=== PATIENT | female | born 1960 | race Caucasian/White ===

== ENCOUNTER 2024-03-06 04:27 | Inpatient (IN) | payer OTHER, SELFPAY ==
[2024-03-05 23:23] VITALS: BMI 31.2
[2024-03-05 23:33] VITALS: BP 153/93
[2024-03-05 23:49] VITALS: BP 174/96
[2024-03-06] VITALS (10 sets, daily range): BP systolic 105–182; BP diastolic 76–123; BMI 29.2
[2024-03-06] MEDS: ZOFRAN 4 MG IV (00:13)
[2024-03-06] MEDS: NSS 1000 IV (00:13)
--- NOTE | 2024-03-06 00:15 | ED.GENMED ---
History of Present Illness
General
Chief Complaint: Abdominal Symptoms
Time Seen by Provider: 03/05/24 23:44
History of Present Illness
History of Present Illness:
63-year-old female with history of Kang syndrome with hypertension and diabetes presenting for nausea, vomiting, chills and shakes. Patient reports symptoms started at 7 PM. Reports similar symptoms in the past, which time she was seen at
outside hospital and told that she had ketoacidosis. She does not generalized discomfort with her abdomen, however no significant pain. Her primary complaint is chills and sweating. She is not on any steroids for Kang syndrome, notes history
of adrenal gland removal. Denies any recent fever or sick contacts. Denies cough, chest pain, difficulty breathing. Also reports surgical history of colon resection for colon cancer
Phy Exam
Physical Exam
Physical Exam:
General: Restless, diaphoretic
HEENT: protecting airway
Neck: appears supple
CV: Normal heart rate, regular rhythm
Resp: No accessory muscle use, no increased work of breathing
Abd: Soft and non-distended, no tenderness to palpation
Extremities: No deformities, no swelling
Neuro: alert, no focal neurologic deficit
: deferred
Rectal: deferred
Psych: Normal affect
Skin: Intact
Course
Orders/Labs/Results
Orders:
Orders
03/05/24 23:57
Complete Blood Count/With Diff Urgent
03/06/24 00:05
0.9% Sodium Chloride 1000 ml [Nss] 1,000 ml IV BOLUS
Ondansetron Injectable [Zofran] 4 mg IV NOW STA
03/06/24 00:16
Venous Blood Gas Urgent
%Oxygen/Room Air: 21
03/06/24 00:49
B-Hydroxybutyrate Urgent
Comprehensive Metabolic Panel Urgent
Lipase Urgent
03/06/24 01:23
Lorazepam [Ativan] 1 mg IV NOW STA
Morphine Sulfate 4 mg IV NOW STA
03/06/24 01:32
CT Abd/pel Without Iv Or Oral Urgent
Comment:
Reason For Exam: abdominal pain, vomiting
03/06/24 01:59
COVID-19 Antigen Urgent
Source: Nasal Swab
Influenza A+B Rapid Molecular Urgent
KARAN Source: Nasal Swab
Specimen Description:
03/06/24 02:57
Urinalysis Reflex To Culture Urgent
Abnormal Lab Results
03/06/24 03/06/24
00:16 00:49
WBC 12.2 H 10^3/uL
(4.8-10.8)
RBC 5.43 H 10^6/uL
(4.20-5.40)
Hgb 16.4 H g/dL
(12.0-16.0)
Abs Immat Gran (auto) 0.2 H 10^3/uL
(0-0.05)
Absolute Neuts (auto) 9.8 H 10^3/uL
(1.4-6.5)
Immature Gran % 1.6 H %
(0-0.5)
Neutrophils % 80.3 H %
(42.2-75.2)
Lymphocytes % 12.3 L %
(20.5-51.1)
VBG pH 7.45 H
(7.32-7.43)
VBG pCO2 23 L mmHg
(35-48)
VBG pO2 86 H mmHg
(30-50)
VBG HCO3 16.0 L mmol/L
(22-27)
Sodium 132 L mmol/L
(135-145)
Chloride 97 L mmol/L
(98-107)
Carbon Dioxide 15 L mmol/L
(22-30)
BUN 29 H mg/dl
(7-17)
Creatinine 1.9 H mg/dL
(0.6-1.0)
Glucose 279 H mg/dl
(70-99)
B-Hydroxybutyrate 2.00 H mmol/L
(0.02-0.27)
03/06/24 00:16
03/06/24 00:49
Vital Signs
Initial and Last Documented VS:
Initial Vital Signs
Temp Pulse Resp BP Pulse Ox
97.2 F 104 20 153/93 99
03/05/24 23:33 03/05/24 23:33 03/05/24 23:33 03/05/24 23:33 03/05/24 23:33
Last Documented Vital Signs
Temp Pulse Resp BP Pulse Ox
97.2 F 109 24 105/91 99
03/05/24 23:33 03/06/24 02:00 03/06/24 01:30 03/06/24 02:00 03/06/24 00:30
MDM/Problems Addressed
MDM/Problems Addressed:
63-year-old female with history of Kang syndrome with diabetes and hypertension presenting for chills, sweats, nausea and vomiting. Vital signs and arrival significant for mild tachycardia and hypertension.
On exam, patient is restless, diaphoretic. Notes similar symptoms in the past from ketoacidosis. Plan for laboratory analysis including VBG. Will start patient on IV fluids. No focal tenderness to abdomen lower suspicion for serious
intra-abdominal process or infection. Will continue to monitor. Will also send viral swabs.
01:20 -the patient is still uncomfortable, will administer Ativan and morphine. Will proceed with imaging of the abdomen. Patient has an anion gap without acidosis, slight hyperglycemia
02:50 -CT without acute pathology. Patient reports improvement of symptoms, however symptoms are now returning. Patient remains slightly tachycardic with concern for underlying dehydration and ketosis. Recommending admission for acute dehydration
and ketosis. Patient agreeable to plan
*Critical Care Note
Total Time (30-74mins, 75-104mins- exclusive of procedures): Not Applicable
ED Attending Note
-
Portions of this chart may have been created with voice recognition software.� Occasional wrong word or��sound alike� substitutions may have occurred due to the inherent limitations of voice recognition software.
Discharge Plan
Interventions
Interventions:
*Risk Screen - Suicide Last Done: 03/06/24 00:11
*General Assessment Last Done: 03/06/24 00:10
*Neglect/Abuse Screening Last Done: 03/06/24 00:10
ED- Fall Risk Assessment Last Done: 03/06/24 00:17
*ED COVID-19 Vaccine History Last Done: 03/06/24 00:10
PD-Nyscde-Fhsjnlmrhr Assessment Last Done: 03/06/24 00:17
Discharge Date and Time
Print Language: SOUTH AFRICAN
[2024-03-06 00:23] LABS: Venous Blood Gas B.E. -5.5 mmol/L (-4 to +4); Venous Blood Gas O2 Sat % 98.1 %; Venous Blood Gas pCO2 23 mmHg (35-48); Venous Blood Gas pH 7.45 (7.32-7.43); Venous Blood Gas pO2 86 mmHg (30-50)
[2024-03-06 00:33] LABS: % Basophils 0.4 % (0-2); % Eosinophils 0.2 % (0-6); % Immature Granulocytes 1.6 % (0-0.5); % Lymphocytes 12.3 % (20.5-51.1); % Monocytes 5.2 % (1.7-9.3); % Neutrophils 80.3 % (42.2-75.2); Absolute Basophils 0.1 10^3/uL (0-0.2); Absolute Immature Granulocytes 0.2 10^3/uL (0-0.05); Absolute Lymphocytes 1.5 10^3/uL (1.2-3.4); Absolute Monocytes 0.6 10^3/uL (0.1-0.6); Absolute Neutrophils 9.8 10^3/uL (1.4-6.5); Hematocrit 46.6 % (37.0-47.0); Hemoglobin 16.4 g/dL (12.0-16.0); Mean Corp Hgb Conc. 35.2 g/dL (33.0-37.0); Mean Corpuscular Hgb 30.2 pg (27.0-31.0); Mean Corpuscular Volume 85.8 fL (81.0-99.0); Mean Platelet Volume 9.8 fL (7.4-10.4); Nucleated Red Blood Cells % 0 %; Platelet Count 296 10^3/uL (130-400); Red Blood Cell Count 5.43 10^6/uL (4.20-5.40); Red Cell Dist. Width 13.9 % (11.5-14.5); White Blood Cell Count 12.2 10^3/uL (4.8-10.8)
[2024-03-06 01:14] LABS: ALT (SGPT) 16 U/L (0-35); AST (SGOT) 18 U/L (14-36); Albumin 4.8 g/dl (3.5-5.0); Alkaline Phosphatase 107 U/L (38-126); Blood Urea Nitrogen 29 mg/dl (7-17); Calcium 9.4 mg/dl (8.4-10.2); Carbon Dioxide 15 mmol/L (22-30); Chloride 97 mmol/L (98-107); Estimated Creatinine Clearance 29 ml/min; Glucose 279 mg/dl (70-99); Lipase 110 U/L (23-300); Potassium 4.5 mmol/L (3.5-5.1); Sodium 132 mmol/L (135-145); Total Bilirubin 0.6 mg/dl (0.2-1.3)
[2024-03-06] MEDS: MORPHINE SULFATE 4 MG IV (01:42)
[2024-03-06] MEDS: ATIVAN 1 MG IV (01:43)
[2024-03-06 02:30] LABS: COVID-19 Antigen Negative (Negative)
--- NOTE | 2024-03-06 04:00 | HPS.HSE ---
Family Physician
-
Family Physician: Reggie Huff
Chief Complaint
-
Abd Pain
History of Present Illness
Patient is a 63y F with PMH significant for Adams's syndrome, colon cancer and DM-II who presents to ED complaining of abdominal pain. Patient states that she was feeling well until around 7PM this evening when she developed sudden onset of
diffuse abdominal pain and nausea. She had multiple episodes of non-bloody emesis. She denies any diarrhea or bloody stools. Patient notes feeling hot and cold and having shaking chills at home. She reports that these symptoms were episodic -
lasting for several minutes, then resolving, then recurring an hour later or so.
She had 4 episodes total and called 911. She presented to the ED via EMS and was in distress due to abdominal pain.
Patient was treated with pain medications and IVFs and at the time of my examination she is resting comfortably.
She states that she currently feels quite fatigued. No current abdominal pain or nausea.
Patient states that she had a similar episode in 2022 which was attributed to 'ketoacidosis'. This ultimately led to the discovery / diagnosis of her Kang's syndrome and ultimate adrenalectomy.
Patient notes that she was also on Jardiance at that time.
She does have DM-II and is on oral medications (currently metformin and glyburide). She denies any recent changes in her med regimen. She does not monitor her glucose at home.
Medical History
Past Medical History
Past Medical History: Reports Other
Additional Past Medical History:
Kang's Syndrome
DM-II
Colon Cancer s/p Resection
Hypertension
Past Surgical History: Reports Other
Additional Past Surgical History:
Partial Colectomy (no adjuvant chemo / XRT)
Right Adrenalectomy (2023)
Pilonidal Cyst Excision
Social History
Tobacco: Smoker (Current every day smoker. > 30 pack years total use.)
Alcohol: None
Drug: Other (Med marijuana card for arthritis pain.)
Family History
Family History: Not pertinent
Allergies / Home Medications
Allergies reflects when Allergies were last updated in [employer].
Home Medications with original date entered in [employer]
Allergy/Medication List:
Allergies
Allergy/AdvReac Type Severity Reaction Status Date / Time
No Known Allergies Allergy Verified 03/05/24 23:32
Home Medications
amlodipine 03/06/24
glyburide 03/06/24
lisinopril 03/06/24
metformin 03/06/24
Review of Systems
-
History Source: Patient
A 12 point ROS was completed and negative except as noted: Yes
Constitutional: Reports Fatigue and Chills; Denies Fever
EENT: Denies Sore Throat
Respiratory: Denies Cough or Trouble Breathing
Cardiac: Denies Chest Pain or Palpitations
Abdomen/GI: Reports Abdominal Pain, Nausea and Vomiting
: Denies Dysuria, Frequency or Flank Pain
Musculoskeletal: Denies Joint Pain or Edema
Neurological: Denies Dizzy or Headache
Psych: Denies Depression or Anxiety
Physical Exam
Vital Signs
Vital Signs
Temp Pulse Resp BP Pulse Ox
97.2 F 109 24 105/91 99
03/05/24 23:33 03/06/24 02:00 03/06/24 01:30 03/06/24 02:00 03/06/24 00:30
Physical Exam
General: Other (63y F in no acute distress.)
HEENT: Other (Dry MM. Neck supple.)
Respiratory: Clear; No Wheezes, Rales or Rhonchi
Cardiac: S1/S2 and Tachycardia; No Murmur
GI: Soft, Non Tender, Non Distended and Normal Bowel Sounds
Musculoskeletal: No Clubbing, No Cyanosis and No Edema
Neuro: AO x 3 and Nonfocal/grossly intact
Laboratory Results
-
03/06/24 00:16
03/06/24 00:49
Laboratory Results
Total Bilirubin 0.6 mg/dl (0.2-1.3) 03/06/24 00:49
AST 18 U/L (14-36) 03/06/24 00:49
ALT 16 U/L (0-35) 03/06/24 00:49
Alkaline Phosphatase 107 U/L (38-126) 03/06/24 00:49
Lipase 110 U/L (23-300) 03/06/24 00:49
Impression/Plan
-
A/P: Patient is a 63y F with PMH significant for Adams's syndrome s//p R adrenalectomy and DM-II who presents to ED complaining of abdominal pain with N/V.
DKA
- Admit for further evaluation and treatment.
- Patient with anion gap metabolic acidosis with AG = 20.
- Glucose > 250 on oral agents alone.
- IV insulin and follow hourly glucose checks.
- Adjust gtt and IVFs as needed - transition to subcut insulin once anion gap is normalized.
- Hold oral agents acutely.
- Check TFTs, AM cortisol, etc for further evaluation.
- Follow for any new / recurrent abdominal symptoms.
- CT A/P done in the ED this evening was unremarkable per [facility] report.
Abdominal Pain
- Severe abdominal pain at home / on presentation.
- ? secondary to DKA as stated.
- ? other etiology - especially with episodic nature. ? volvulus, internal hernia, etc.
- CT imaging unremarkable as noted above.
- Lactate level is pending.
- Follow for any new / recurrent symptoms and consider repeat imaging if needed.
Benign Hypertension
- Stable. Initially elevated BP due to pain.
- Hold PO medications for now. Confirm dosing, etc and then resume if appropriate.
History of Kang's Syndrome
- s/p R adrenalectomy at [place] about 1 year ago.
- Check AM cortisol. No new lesion seen on CT.
History of Colon Cancer
- s/p partial colectomy. No adjuvant chemo or XRT.
- No abnormalities seen on CT.
DVT Prophylaxis: Lovenox
Code Status: Full
[2024-03-06 05:19] LABS: % Basophils 0.2 % (0-2); % Immature Granulocytes 0.3 % (0-0.5); % Lymphocytes 6.8 % (20.5-51.1); % Monocytes 3.2 % (1.7-9.3); % Neutrophils 89.5 % (42.2-75.2); Absolute Lymphocytes 0.8 10^3/uL (1.2-3.4); Absolute Monocytes 0.4 10^3/uL (0.1-0.6); Absolute Neutrophils 10.3 10^3/uL (1.4-6.5); Hematocrit 47.7 % (37.0-47.0); Mean Corp Hgb Conc. 33.5 g/dL (33.0-37.0); Mean Corpuscular Hgb 29.5 pg (27.0-31.0); Mean Platelet Volume 8.8 fL (7.4-10.4); Nucleated Red Blood Cells % 0 %; Platelet Count 339 10^3/uL (130-400); Red Blood Cell Count 5.42 10^6/uL (4.20-5.40); White Blood Cell Count 11.5 10^3/uL (4.8-10.8)
[2024-03-06] MEDS: NSS with KCL 20 MEQ 1000 IV (05:31)
[2024-03-06 05:37] LABS: Glucose - Point of Care 242 mg/dl (70-99)
[2024-03-06 05:39] LABS: Magnesium 1.8 mg/dl (1.6-2.3); Phosphorus 3.8 mg/dl (2.5-4.5)
[2024-03-06 05:40] LABS: Blood Urea Nitrogen 28 mg/dl (7-17); Calcium 9.6 mg/dl (8.4-10.2); Carbon Dioxide 20 mmol/L (22-30); Chloride 99 mmol/L (98-107); Estimated Creatinine Clearance 37 ml/min; Glucose 250 mg/dl (70-99); Sodium 134 mmol/L (135-145); eGFR 38.91
[2024-03-06 05:41] LABS: Lactic Acid 1.2 mmol/L (0.7-2.0)
[2024-03-06] MEDS: NOVOLOG FLEXPEN 6 UNITS SC (06:02)
[2024-03-06] MEDS: NOVOLIN R INSULIN INFUSION 100 IV (06:05)
[2024-03-06 06:10] LABS: Cortisol, Random 51.3 ug/dl; TSH Reflex To Free T4 0.92 uIU/ml (0.47-4.68)
[2024-03-06 07:15] LABS: Glucose - Point of Care 178 mg/dl (70-99)
[2024-03-06] MEDS: NSS (PRESERVATIVE FREE) 10 ML IV (07:52)
[2024-03-06] MEDS: PROTONIX IV 40 MG IV (07:53)
[2024-03-06 08:32] LABS: Glucose - Point of Care 129 mg/dl (70-99)
[2024-03-06 09:10] LABS: Blood Urea Nitrogen 25 mg/dl (7-17); Calcium 9.7 mg/dl (8.4-10.2); Carbon Dioxide 20 mmol/L (22-30); Chloride 99 mmol/L (98-107); Estimated Creatinine Clearance 46 ml/min; Glucose 139 mg/dl (70-99); Potassium 4.5 mmol/L (3.5-5.1); Sodium 135 mmol/L (135-145); eGFR 50.86
--- NOTE | 2024-03-06 09:12 | W.PN.HOSP.TC ---
Today's Communication/Plan
-
Continue n.p.o.
Continue insulin drip pending normalization of anion gap. Serial BMP ordered.
Change IV fluids to half-normal without potassium.
Hemoglobin A1c pending.
Diabetic nurse practitioner consultation.
Monitor abdominal pain closely
Assessment / Plan
Assessment / Plan
A/P: Patient is a 63y F with PMH significant for Kang's syndrome s//p R adrenalectomy and DM-II who presents to ED complaining of abdominal pain with N/V.
DKA
- Patient with anion gap metabolic acidosis with AG = 20.
- Glucose > 250 on oral agents alone.
- IV insulin and follow hourly glucose checks.
- Adjust gtt and IVFs as needed - transition to subcut insulin once anion gap is normalized.
- Hold oral agents acutely.
- TFT, serum cortisol within normal limits.
- Follow for any new / recurrent abdominal symptoms.
- CT A/P without contrast with no acute pathology.
- Urinalysis pending
Acute kidney injury secondary to dehydration.
No evidence of for retention clinically and by CT scan.
Creatinine improving with volume expansion
Abdominal Pain
- Severe abdominal pain at home / on presentation.
Abdominal examination benign
- ? secondary to DKA as stated.
- ? other etiology - especially with episodic nature. ? volvulus, internal hernia, etc.
- CT abdomen and pelvis without contrast with no acute pathology.
- Lactate level is pending.
- Follow for any new / recurrent symptoms and consider repeat imaging if needed.
Benign Hypertension
- Stable. Initially elevated BP due to pain.
- Hold PO medications for now. Confirm dosing, etc and then resume if appropriate.
History of Kang's Syndrome
- s/p R adrenalectomy at [place] about 1 year ago.
- Serum cortisol level 51
History of Colon Cancer
- s/p partial colectomy. No adjuvant chemo or XRT.
- No abnormalities seen on CT.
DVT Prophylaxis: Lovenox
Code Status: Full
Anticipated Discharge: 24 - 48 hours
Subjective/Interval History
-
Date of Service: March 06, 2024
Objective Data
-
Labs:
Laboratory Results
03/06/24 03/06/24 03/06/24
00:16 00:49 04:56
WBC 12.2 H 11.5 H
Hgb 16.4 H 16.0
Hct 46.6 47.7 H
Plt Count 296 339
Sodium Cancelled 132 L 134 L
Potassium Cancelled 4.5 5.0
Chloride Cancelled 97 L 99
Carbon Dioxide Cancelled 15 L 20 L
BUN Cancelled 29 H 28 H
Creatinine Cancelled 1.9 H 1.5 H
Glucose Cancelled 279 H 250 H
Calcium Cancelled 9.4 9.6
Total Bilirubin Cancelled 0.6
AST Cancelled 18
ALT Cancelled 16
Alkaline Phosphatase Cancelled 107
03/06/24 03/06/24 03/06/24
08:47 12:42 16:42
WBC
Hgb
Hct
Plt Count
Sodium 135 Pending Pending
Potassium 4.5 Pending Pending
Chloride 99 Pending Pending
Carbon Dioxide 20 L Pending Pending
BUN 25 H Pending Pending
Creatinine 1.2 H Pending Pending
Glucose 139 H Pending Pending
Calcium 9.7 Pending Pending
Total Bilirubin
AST
ALT
Alkaline Phosphatase
03/06/24
20:42
WBC
Hgb
Hct
Plt Count
Sodium Pending
Potassium Pending
Chloride Pending
Carbon Dioxide Pending
BUN Pending
Creatinine Pending
Glucose Pending
Calcium Pending
Total Bilirubin
AST
ALT
Alkaline Phosphatase
Vital Signs:
Vital Signs
Temp Pulse Resp BP Pulse Ox
98.2 F 114 26 154/83 93
03/06/24 07:52 03/06/24 07:45 03/06/24 07:45 03/06/24 07:43 03/06/24 07:45
Physical Exam
-
General: Well Developed and No Apparent Distress
HEENT: Normocephalic, Atraumatic and Moist Mucous Membranes
Respiratory: Clear to Auscultation
Cardiac: Regular Rhythm and S1/S2; Negative Murmur, Rub or Gallop
GI: Soft, Nontender, Nondistended and Normal Bowel Sounds; Negative Organomegaly
Rectal: Deferred by Provider
Musculoskeletal: No Clubbing, No Cyanosis and No Edema
Skin: Negative Rash
Neuro: Nonfocal/Grossly Intact
--- NOTE | 2024-03-06 09:23 | PN.DE.MGMTRT ---
Insulin Management
- -
03/06/2024: Diabetes management Consult
63 year old female with PMH significant for Kang's syndrome s//p R adrenalectomy, H/o Colon Cancer, s/p partial colectomy and T2DM who presents to ED complaining of abdominal pain with N/V, noted for DKA, AG = 20, Glucose on admission > 250.
Cr 2.1, A1C 7.7%, prior to admission was taking Glimepiride 1mg daily and Metformin 1000mg daily. Pt has been started on DKA protocol. Current glucose 146, requiring 1-2 units of insulin/hr.
Will cont to follow and assess for readiness to transition off the drip when GAP has closed.
Diabetes History
- -
Type of Diabetes: 2 requiring insulin
Pre-Admission Diabetes Regimen
03/06/24 03/06/24 03/06/24
00:16 00:49 04:56
Creatinine Cancelled 1.9 H 1.5 H
03/06/24
08:47
Creatinine 1.2 H
Insulin Pump Settings
IP Diabetes Regimen
03/06/24 03/06/24 03/06/24
00:16 00:49 04:56
Glucose Cancelled 279 H 250 H
POC Glucose
03/06/24 03/06/24 03/06/24
05:36 07:13 08:31
Glucose
POC Glucose 242 H 178 H 129 H
03/06/24
08:47
Glucose 139 H
POC Glucose
Patient Education
[2024-03-06] MEDS: D5/0.45%NACL 1000 IV ×2 (09:57→16:56)
[2024-03-06 10:22] LABS: Glucose - Point of Care 146 mg/dl (70-99)
[2024-03-06 11:16] LABS: Glucose - Point of Care 178 mg/dl (70-99)
[2024-03-06 11:57] LABS: Glycohemoglobin (HgbA1c) 7.7 % (4.0-5.6)
[2024-03-06] MEDS: NORVASC 10 MG PO (12:05)
[2024-03-06 12:21] LABS: Glucose - Point of Care 190 mg/dl (70-99)
[2024-03-06 13:07] LABS: Glucose - Point of Care 187 mg/dl (70-99)
[2024-03-06 13:26] LABS: Blood Urea Nitrogen 23 mg/dl (7-17); Calcium 9.3 mg/dl (8.4-10.2); Carbon Dioxide 18 mmol/L (22-30); Chloride 101 mmol/L (98-107); Estimated Creatinine Clearance 49 ml/min; Glucose 180 mg/dl (70-99); Potassium 4.9 mmol/L (3.5-5.1); Sodium 133 mmol/L (135-145); eGFR 56.46
[2024-03-06 13:27] LABS: Urine Albumin Trace (Neg - Trace); Urine Bilirubin Negative (Negative); Urine Character Clear (Clear); Urine Color Yellow; Urine Glucose 2+ (Negative); Urine Ketone 2+ (Negative); Urine Leukocyte Negative (Negative); Urine Nitrite Negative (Negative); Urine Occult Blood 3+ (Negative); Urine Urobilinogen Negative (Neg - 1+)
[2024-03-06 14:26] LABS: Glucose - Point of Care 172 mg/dl (70-99)
[2024-03-06 14:49] LABS: Urine Bacteria Few (Negative); Urine Red Blood Cell 0-2 /HPF (0-2); Urine White Cell 0-2 /HPF (0-5)
[2024-03-06 15:19] LABS: Glucose - Point of Care 173 mg/dl (70-99)
[2024-03-06 16:20] LABS: Glucose - Point of Care 156 mg/dl (70-99)
[2024-03-06] MEDS: LOVENOX 30 MG SC (16:55)
[2024-03-06 17:05] LABS: Glucose - Point of Care 157 mg/dl (70-99)
[2024-03-06 17:23] LABS: Blood Urea Nitrogen 20 mg/dl (7-17); Calcium 9.6 mg/dl (8.4-10.2); Carbon Dioxide 19 mmol/L (22-30); Chloride 100 mmol/L (98-107); Estimated Creatinine Clearance 54 ml/min; Glucose 159 mg/dl (70-99); Potassium 4.3 mmol/L (3.5-5.1); Sodium 132 mmol/L (135-145); eGFR > 60.00
[2024-03-06 18:14] LABS: Glucose - Point of Care 136 mg/dl (70-99)
[2024-03-06 19:20] LABS: Glucose - Point of Care 137 mg/dl (70-99)
[2024-03-06 20:10] LABS: Glucose - Point of Care 152 mg/dl (70-99)
[2024-03-06 21:17] LABS: Blood Urea Nitrogen 18 mg/dl (7-17); Calcium 8.9 mg/dl (8.4-10.2); Carbon Dioxide 18 mmol/L (22-30); Chloride 103 mmol/L (98-107); Estimated Creatinine Clearance 54 ml/min; Glucose 140 mg/dl (70-99); Potassium 4.2 mmol/L (3.5-5.1); Sodium 132 mmol/L (135-145); eGFR > 60.00
[2024-03-06 21:25] LABS: Glucose - Point of Care 116 mg/dl (70-99)
--- NOTE | 2024-03-06 22:34 | PTCARENOTE ---
Received patient in bed AAOx3 and able to make her needs known. Patient received on insulin gtt at 1 unit/hr. denies feeling nauseated. per the patient, her shakes have subsided. Plan of care for the shift reviewed with the patient. Sinus tachy on
the monitor with HR 103. SpO2 at 94% on room air. Inspiratory and expiratory wheeze throughout. occasional cough. voice is raspy. +BS. The patient ambulates to the bathroom. D5-1/2NS at 125 ml/hr. All needs are met at this time. Bed in the lowest
position. Call dhaliwal and personal belonigns are within reach.
[2024-03-06 23:09] LABS: Glucose - Point of Care 185 mg/dl (70-99)
--- NOTE | 2024-03-06 23:27 | PTCARENOTE ---
2234: Cheryl Barraza NP notified regarding the patient's anion gap of 11 and BG 116 and 100 as per protocol.
[2024-03-06] MEDS: LANTUS 0.1 UNITS SC (23:33)
[2024-03-07] VITALS: BP 121/68
[2024-03-07 00:19] LABS: Glucose - Point of Care 179 mg/dl (70-99)
[2024-03-07 01:37] LABS: Glucose - Point of Care 116 mg/dl (70-99)
--- NOTE | 2024-03-07 01:37 | PTCARENOTE ---
01:33 - Insulin gtt and D5-1/2NS d/c as per Cheryl Barraza CRNP order. Patient updated on plan of care. BG 116.
[2024-03-07 02:00] VITALS: BP 98/65
[2024-03-07 03:43] LABS: Hematocrit 47.4 % (37.0-47.0); Hemoglobin 16.1 g/dL (12.0-16.0); Mean Corpuscular Hgb 29.3 pg (27.0-31.0); Mean Corpuscular Volume 86.2 fL (81.0-99.0); Mean Platelet Volume 8.8 fL (7.4-10.4); Platelet Count 340 10^3/uL (130-400); White Blood Cell Count 9.9 10^3/uL (4.8-10.8)
[2024-03-07 03:58] LABS: Blood Urea Nitrogen 16 mg/dl (7-17); Calcium 9.4 mg/dl (8.4-10.2); Carbon Dioxide 19 mmol/L (22-30); Chloride 104 mmol/L (98-107); Estimated Creatinine Clearance 54 ml/min; Glucose 120 mg/dl (70-99); Magnesium 1.7 mg/dl (1.6-2.3); Potassium 4.3 mmol/L (3.5-5.1); Sodium 134 mmol/L (135-145); eGFR > 60.00
[2024-03-07 04:00] VITALS: BP 87/59
[2024-03-07 06:00] VITALS: BP 108/70; BMI 29.1
--- NOTE | 2024-03-07 07:12 | W.PN.UPDATE ---
Update Note
Progress Note Update
Anion gap closed, now 11. Started Lantus 10 units, ordered SS insulin coverage. Fluids and insulin gtt to continue for 2 hours after Lantus given and then be discontinued. Ordered diabetic diet.
[2024-03-07 07:49] LABS: Glucose - Point of Care 156 mg/dl (70-99)
[2024-03-07 08:00] VITALS: BP 106/74
[2024-03-07 08:37] VITALS: BP 117/88
[2024-03-07] MEDS: NOVOLOG FLEXPEN-LOW RESISTANCE 1 UNITS SC (08:40)
[2024-03-07] MEDS: ASPIR LOW (ENTERIC COATED) 81 MG PO (08:41)
[2024-03-07] MEDS: NORVASC 10 MG PO (08:41)
[2024-03-07] MEDS: PROTONIX IV 40 MG IV (08:42)
[2024-03-07] MEDS: NSS (PRESERVATIVE FREE) 10 ML IV (08:42)
--- NOTE | 2024-03-07 08:46 | PTCARENOTE ---
Assumed care 0700. AAO x3 denies chest pain., Nausea, no vomiting. Blood sugar before breakfast 156/1 unit Novolog adm per sliding scale
ST at rest [address] 140's BP via Rt UA 117/78 RR 20; 96% RA
Abdomen soft non tender BS + Tolerating diet with good appetite
Voiding no difficulties
peripheral line left hand flushed capped
pt hoping to be D/c today
call dhaliwal within reach
--- NOTE | 2024-03-07 11:16 | W.DS.TRANS ---
DC Summary - Grease Buffer
-
Discharge Instructions:
Discharge Diagnosis/Procedures DKA
Diet Diabetic, Carb Controlled
Instructions:
Stand-Alone Forms:
Changes to Home Medications: Yes
Discharge Medications:
DC Medications w/original date entered in [employer]
Medical Marijuana 2 puff inhalation DAILYPRN PRN stress 03/06/24
amlodipine 10 mg tablet (Norvasc) 10 mg PO DAILY Blood Pressure 03/06/24
aspirin 81 mg tablet,delayed release 81 mg PO DAILY Blood Clot Prevention/Tx 03/06/24
dvuqiac-fkxuynoaqhnam-esjyxgfm 250 mg-250 mg-65 mg tablet 2 tab PO DAILYPRN PRN headaches 03/06/24
lisinopril 40 mg tablet 40 mg PO DAILY Blood Pressure 03/06/24
metformin 1,000 mg tablet 1,000 mg PO DAILY Diabetes 03/06/24
insulin glargine 100 unit/mL (3 mL) subcutaneous pen (Basaglar KwikPen U-100 Insulin) 10 unit (0.1 mL) SC QPM #5 ea 03/07/24
pen needle, diabetic 32 gauge x ' (BD Ultra-Fine Melanie Pen Needle) #200 ea 03/07/24
Home Medication Changes
Lantus initiated.
Glyburide discontinued
Pending Results: No
[2024-03-07 11:40] LABS: Glucose - Point of Care 202 mg/dl (70-99)
[2024-03-07] MEDS: NOVOLOG FLEXPEN-LOW RESISTANCE 3 UNITS SC (12:59)
--- NOTE | 2024-03-07 12:59 | PTCARENOTE ---
patient d/c to home . Peripheral lines x 2 removed prior to d/c. pt was able to demonstrate proper injection and drawing 10 units . All d/c instruction given to patient. All questions answered .
--- NOTE | 2024-03-07 16:23 | CM ---
Patient with Dx DKA.
Met with patient who resides with her SO Susan in a one story house with 5 [id number].
The patient was independent in ADLs and ambulation.
DME - glucometer, RW, SPC
No prior VN or SNF.
PCP - Reggie Huff
Pharmacy - [facility]
The patient says she feels ready for d/c home today.
Her SO will provide transport home.
No CM d/c needs identified.
Plan home today.
== END 2024-03-07 13:04 | disposition home or self-care (01) | DRG 638 ==
LOC: ICU 04:27
PROVIDERS: Nurse Practitioner Family; ADMITTING PHYSICIAN Hospitalist; ATTENDING PHYSICIAN Internal Medicine; EMERGENCY PHYSICIAN Student in an Organized Health Care Education/Training Program; FAMILY PHYSICIAN Family Medicine
DX: E11.10 Type 2 diabetes mellitus with ketoacidosis without coma (principal); E24.9 Cushing's syndrome, unspecified; N17.9 Acute kidney failure, unspecified; E86.0 Dehydration; I10 Essential (primary) hypertension; F17.210 Nicotine dependence, cigarettes, uncomplicated; Z85.038 Personal history of other malignant neoplasm of large intestine; Z79.4 Long term (current) use of insulin; Z79.82 Long term (current) use of aspirin; Z90.49 Acquired absence of other specified parts of digestive tract
CPT/HCPCS: 74176; 80048; 80053; 81003; 81015; 82010; 82533; 82805; 82962; 83036; 83605; 83690; 83735; 84100; 84443; 85025; 85027; 87502; 87811; 96361; 96374; 96375; 99285

== ENCOUNTER 2024-04-27 16:29 | Inpatient (IN) | payer OTHER, SELFPAY ==
[2024-04-27 12:21] VITALS: BP 156/102
[2024-04-27 12:21] LABS: Glucose - Point of Care 202 mg/dl (70-99)
--- NOTE | 2024-04-27 12:57 | ED.GENMED ---
History of Present Illness
General
Chief Complaint: Blood Sugar Problem
Time Seen by Provider: 04/27/24 12:44
History of Present Illness
History of Present Illness:
63-year-old female presents the emergency department for evaluation of intractable vomiting beginning yesterday. She underwent a dental extraction this morning since that time is concerned that her glucoses continue to increase. Typically her
glucose is steady in the 1 40-1 60 range, monitors with a Dexcom. States it has been increasing since her procedure today and was approximately 202 on arrival to the ED. Reports generalized tremors with no fever
Review of Systems
Review of Systems
Allergies reviewed?: Yes
All Other Systems: ROS reviewed and negative except as documented in HPI and ROS
Phy Exam
Physical Exam
Physical Exam:
GEN: Well appearing, NAD, WDWN
HEENT: Oral mucosa moist, no scleral icterus
Cardiac: Tachycardic, regular
Lung: Tachypneic with no accessory muscle use
Abdomen: Soft, grossly nontender
MSK: No gross deformity or injuries
Skin: Good color, no pallor or jaundice, no rashes
Neuro: AO x3, moves all extremities freely
Psych: Calm, cooperative
Course
Orders/Labs/Results
Orders:
Orders
04/27/24 12:51
0.9% Sodium Chloride 1000 ml [Nss] 1,000 ml IV BOLUS
Ketorolac [Toradol] 15 mg IV NOW STA
Ondansetron Injectable [Zofran] 4 mg IV NOW STA
04/27/24 13:20
Acetone [B-Hydroxybutyrate] Urgent
Complete Blood Count/With Diff Urgent
Comprehensive Metabolic Panel Urgent
04/27/24 14:41
Lactated Ringers [Lr] 1,000 ml IV BOLUS
04/27/24 14:42
Bedside Glucose- Treatment Q1H
IV Insert/Care/Rem.- Treatment PRN
04/27/24 14:46
Dextrose 5%/0.45%Sodchl 1000ML [D5/0.45%NaCl] 1,000 ml IV 250 mls/hr
04/27/24 15:21
Venous Blood Gas Urgent
%Oxygen/Room Air: 98
04/27/24 15:39
Reg Insulin 100 Units/100 ml [Novolin R Insulin Infusion] 100 units in 100 ml IV NOW
04/27/24 16:06
Admit/Transfer Patient As Directed
Co-Sign Provider:
Level of Care: Inpatient admission
Assign to:: IMU- Intermediate Care
Physician / Group: Dayton Figueroa
Diagnosis: DKA, nausea/vomiting
Reason for Hospitalization: DKA, nausea/vomiting
Expected length of stay greater than two midnights?: Yes
ELOS- Estimated Length of Stay in days: 3
I certify the patient meets the requirements for IP care: Yes
PRN Pain Medication Management As Directed
May give lesser potent ordered pain med per pt: Yes
preference::
Protocol:: Medication orders for pain may be administered in a
manner that supports deferring to patient preference
when the pt is:
- Requesting an ordered lesser potent pain medication.
Least to most potent pain medications are defined
as: acetaminophen < NSAID < tramadol < opioids
(morphine, oxycodone, hydromorphone).
- Requesting a lesser dose of the same medication IF
ORDERED.
- Requesting a less intrusive route of administration
if both routes are prescribed by the provider (PO <
IV).
04/27/24 16:07
Code Status As Directed
Resuscitation Status: Full Code
04/27/24 17:22
Basic Metabolic Panel Q2H
04/27/24 18:45
Basic Metabolic Panel Q2H
Abnormal Lab Results
04/27/24 04/27/24
12:19 13:20
WBC 15.7 H 10^3/uL
(4.8-10.8)
RBC 5.82 H 10^6/uL
(4.20-5.40)
Hgb 16.9 H g/dL
(12.0-16.0)
Hct 50.1 H %
(37.0-47.0)
Abs Immat Gran (auto) 0.1 H 10^3/uL
(0-0.05)
Absolute Neuts (auto) 13.9 H 10^3/uL
(1.4-6.5)
Absolute Lymphs (auto) 1.1 L 10^3/uL
(1.2-3.4)
Neutrophils % 88.9 H %
(42.2-75.2)
Lymphocytes % 6.8 L %
(20.5-51.1)
Carbon Dioxide 15 L mmol/L
(22-30)
BUN 22 H mg/dl
(7-17)
Creatinine 1.6 H mg/dL
(0.6-1.0)
Glucose 257 H mg/dl
(70-99)
Calcium 10.6 H mg/dl
(8.4-10.2)
Total Protein 8.3 H g/dl
(6.3-8.2)
Albumin 5.3 H g/dl
(3.5-5.0)
B-Hydroxybutyrate 2.41 H mmol/L
(0.02-0.27)
POC Glucose 202 H mg/dl
(70-99)
04/27/24 13:20
04/27/24 14:45
Vital Signs
Initial and Last Documented VS:
Initial Vital Signs
Temp Pulse Resp BP Pulse Ox
97.5 F 117 22 156/102 98
04/27/24 12:21 04/27/24 12:21 04/27/24 12:21 04/27/24 12:21 04/27/24 12:21
Last Documented Vital Signs
Temp Pulse Resp BP Pulse Ox
97.5 F 116 42 174/92 99
04/27/24 12:21 04/27/24 18:32 04/27/24 18:32 04/27/24 18:32 04/27/24 18:32
MDM/Problems Addressed
MDM/Problems Addressed:
Although the patient's glucose is not markedly elevated she is certainly acidotic and tachycardic. She is not hypotensive or hypokalemic suggesting an adrenal crisis. Will start the patient insulin drip maintenance dextrose based fluids due to
marginal glucose given the significant elevation of anion gap
*Critical Care Note
Total Time (30-74mins, 75-104mins- exclusive of procedures): Not Applicable
ED Attending Note
-
Portions of this chart may have been created with voice recognition software.� Occasional wrong word or��sound alike� substitutions may have occurred due to the inherent limitations of voice recognition software.
Discharge Plan
Departure
Patient Disposition: Admit
Date of Disposition: 04/27/24
Time of Disposition: 15:12
Admit to: IMU
Presentation/result/management discussed w/ accepting MD/DO: Hospitalist
Discharge Problem:
DKA (diabetic ketoacidosis)
Interventions
Interventions:
*Risk Screen - Suicide Last Done: 04/27/24 12:21
*Neglect/Abuse Screening Last Done: 04/27/24 12:21
ED- Fall Risk Assessment Last Done: 04/27/24 13:18
*ED COVID-19 Vaccine History Last Done: 04/27/24 13:00
ED- Neurological Assessment Last Done: 04/27/24 13:18
[2024-04-27 13:00] VITALS: BMI 28.2
[2024-04-27] MEDS: NSS 1000 IV (13:20)
[2024-04-27] MEDS: TORADOL 15 MG IV (13:22)
[2024-04-27] MEDS: ZOFRAN 4 MG IV ×2 (13:22→23:15)
[2024-04-27 13:47] LABS: % Basophils 0.3 % (0-2); % Immature Granulocytes 0.4 % (0-0.5); % Lymphocytes 6.8 % (20.5-51.1); % Monocytes 3.6 % (1.7-9.3); % Neutrophils 88.9 % (42.2-75.2); Absolute Basophils 0.1 10^3/uL (0-0.2); Absolute Immature Granulocytes 0.1 10^3/uL (0-0.05); Absolute Lymphocytes 1.1 10^3/uL (1.2-3.4); Absolute Monocytes 0.6 10^3/uL (0.1-0.6); Absolute Neutrophils 13.9 10^3/uL (1.4-6.5); Hematocrit 50.1 % (37.0-47.0); Hemoglobin 16.9 g/dL (12.0-16.0); Mean Corp Hgb Conc. 33.7 g/dL (33.0-37.0); Mean Corpuscular Volume 86.1 fL (81.0-99.0); Mean Platelet Volume 9.2 fL (7.4-10.4); Nucleated Red Blood Cells % 0 %; Platelet Count 363 10^3/uL (130-400); Red Blood Cell Count 5.82 10^6/uL (4.20-5.40); Red Cell Dist. Width 13.8 % (11.5-14.5); White Blood Cell Count 15.7 10^3/uL (4.8-10.8)
[2024-04-27 14:16] LABS: ALT (SGPT) 19 U/L (0-35); AST (SGOT) 21 U/L (14-36); Albumin 5.3 g/dl (3.5-5.0); Alkaline Phosphatase 115 U/L (38-126); Blood Urea Nitrogen 22 mg/dl (7-17); Calcium 10.6 mg/dl (8.4-10.2); Carbon Dioxide 15 mmol/L (22-30); Chloride 99 mmol/L (98-107); Estimated Creatinine Clearance 33 ml/min; Glucose 257 mg/dl (70-99); Potassium 4.7 mmol/L (3.5-5.1); Sodium 135 mmol/L (135-145); Total Bilirubin 0.9 mg/dl (0.2-1.3); Total Protein 8.3 g/dl (6.3-8.2); eGFR 36.01
[2024-04-27 14:40] LABS: B-Hydroxybutyrate 2.41 mmol/L (0.02-0.27)
[2024-04-27] MEDS: LR 1000 IV (15:24)
[2024-04-27 15:31] LABS: Venous Blood Gas B.E. 0.2 mmol/L (-4 to +4); Venous Blood Gas HCO3 24.7 mmol/L (22-27); Venous Blood Gas O2 Sat % 79.2 %; Venous Blood Gas pCO2 39 mmHg (35-48); Venous Blood Gas pH 7.41 (7.32-7.43); Venous Blood Gas pO2 46 mmHg (30-50)
[2024-04-27] MEDS: D5/0.45%NACL 1000 IV ×2 (16:03→21:27)
[2024-04-27] MEDS: NOVOLIN R INSULIN INFUSION 100 IV (16:08)
--- NOTE | 2024-04-27 16:10 | HPS.HSE ---
Family Physician
-
Family Physician: Reggie Huff
Chief Complaint
-
uncontrolled blood glucose, nausea/vomiting
History of Present Illness
Patient is a 63-year-old female with past medical history of essential hypertension, insulin-dependent diabetes mellitus, medical marijuana use came to ER after noted to having high blood glucose of 260 on her continuous glucose monitor. Patient
was also having episodes of nausea and vomiting from the morning and was not able to keep her breakfast down. Patient had a tooth extraction today in dentist office and noticed her for that having high blood glucose. Patient was concerned about
going through DKA with ongoing nausea and vomiting. In ER blood work showing patient anion gap of 20 with elevated beta hydroxybutyrate level. Patient was started on insulin drip and being admitted to hospital for further management.
Patient denies of having any other ongoing issues of chest pain/shortness of breath/palpitation/diarrhea/dysuria. Patient does report of having shaking although denying of having fever.
Medical History
Past Medical History
Past Medical History: Reports Other
Additional Past Medical History:
essential hypertension, insulin-dependent diabetes mellitus, medical marijuana use
Past Surgical History: Reports Other
Social History
Tobacco: Non-smoker
Alcohol: None
Drug: Marijuana (Medical)
Living: With Family
Family History
Family History: Not pertinent
Allergies / Home Medications
Allergies reflects when Allergies were last updated in [facility].
Home Medications with original date entered in [facility]
Allergy/Medication List:
Allergies
Allergy/AdvReac Type Severity Reaction Status Date / Time
No Known Allergies Allergy Verified 03/05/24 23:32
Home Medications
Medical Marijuana 2 puff inhalation DAILYPRN PRN stress 03/06/24
amlodipine 10 mg tablet (Norvasc) 10 mg PO QPM Blood Pressure 03/06/24
aspirin 81 mg tablet,delayed release 81 mg PO DAILY Blood Clot Prevention/Tx 03/06/24
whksnki-kjlhoserjmumh-mjpynsos 250 mg-250 mg-65 mg tablet 2 tab PO DAILYPRN PRN headaches 03/06/24
lisinopril 40 mg tablet 40 mg PO DAILY Blood Pressure 03/06/24
metformin 1,000 mg tablet 1,000 mg PO DAILY Diabetes 03/06/24
acetaminophen 300 mg-codeine 30 mg tablet 1 tab PO TIDPRN PRN severe pain/tooth extraction 04/27/24
acetaminophen 500 mg tablet 1,000 mg PO QIDPRN PRN mild pain 04/27/24
diphenhydramine 25 mg-acetaminophen 500 mg tablet (Tylenol PM Extra Strength) 1 tab PO HSPRN PRN sleep 04/27/24
insulin glargine 100 unit/mL (3 mL) subcutaneous pen (Basaglar KwikPen U-100 Insulin) 8 unit SC QPM 04/27/24
Review of Systems
-
A 12 point ROS was completed and negative except as noted: Yes
Physical Exam
Vital Signs
Vital Signs
Temp Pulse Resp BP Pulse Ox
97.5 F 117 22 156/102 98
04/27/24 12:21 04/27/24 12:21 04/27/24 12:21 04/27/24 12:21 04/27/24 12:21
Physical Exam
General: No Apparent Distress
HEENT: Atraumatic; No Oxygen
Respiratory: Clear
Cardiac: S1/S2 and Regular Rhythm; No Murmur or Rub
GI: Soft, Non Tender and Non Distended; No Organomegaly
Musculoskeletal: No Clubbing, No Cyanosis and No Edema
Skin: No Rash
Neuro: Awake, Alert, Oriented and Nonfocal/grossly intact
Laboratory Results
-
04/27/24 13:20
Laboratory Results
Total Bilirubin 0.9 mg/dl (0.2-1.3) 04/27/24 13:20
AST 21 U/L (14-36) 04/27/24 13:20
ALT 19 U/L (0-35) 04/27/24 13:20
Alkaline Phosphatase 115 U/L (38-126) 04/27/24 13:20
Impression/Plan
-
1. DKA
Insulin dependant diabetes mellitus
-Comes in with nausea vomiting and elevated glucose reported in 260s at home
-AGAP of 20. BHB level of 2.5
-Possible mild DKA at best, maintain on insulin drip for now
-Maintain on D5 containing IVF
-Continue NPO, can be started on liquid diet once out of DKA
-f/u BMP ordered and hourly accucheck ordered
-admit to IMU
2. KATHERINE
-Elevated creatinine of 1.6, baseline of 1
-hold lisinopril
-Maintain on IV fluid
-Follow-up renal function
3. Essential hypertension
-Continue Norvasc, hold lisinopril with HTN
4. Medical marijuana use
-uses for anxiety/stress
DVTPPX - heparin subq
Full code
Total time spent : 77 mins
I personally saw and examined the patient.
I have reviewed all diagnostic interpretations and treatment plans as written.
Time includes patient management by me, time spent at the patients bedside, time to review lab and imaging results, discussing patient care, documentation in the medical record, and time spent with the family or caregiver and discussing care plan
with RN/Consultants.
[2024-04-27 17:25] LABS: Glucose - Point of Care 207 mg/dl (70-99)
[2024-04-27 17:51] LABS: Blood Urea Nitrogen 22 mg/dl (7-17); Calcium 9.8 mg/dl (8.4-10.2); Carbon Dioxide 21 mmol/L (22-30); Chloride 99 mmol/L (98-107); Estimated Creatinine Clearance 38 ml/min; Glucose 213 mg/dl (70-99); Potassium 3.9 mmol/L (3.5-5.1); Sodium 135 mmol/L (135-145); eGFR 42.27
[2024-04-27 18:21] LABS: Glucose - Point of Care 114 mg/dl (70-99)
[2024-04-27] MEDS: ATIVAN 1 MG IV (18:30)
[2024-04-27 18:32] VITALS: BP 174/92
[2024-04-27 18:48] VITALS: BP 167/93
[2024-04-27 18:50] VITALS: BMI 27.7
[2024-04-27 19:27] LABS: Glucose - Point of Care 116 mg/dl (70-99)
--- NOTE | 2024-04-27 19:40 | PTCARENOTE ---
Report received from IMU RN. Pt ordered q1 glucose checks. received in report to 'message Dr. Figueroa with results of next Q1 glucose check'. When entering room, Pt not connected to any Iv infusions. per APR, there are active orders for insulin gtt
at this time. pt glucose check 116 @ 19:16. Henry SPAIN notified of pts glucose reading per tiger text. order present to notify MD when glucose less than 250 to receive orders for D5 1/2 NS. No active orders for fluids at this time.
[2024-04-27 20:12] VITALS: BP 145/94
[2024-04-27 20:25] LABS: Glucose - Point of Care 151 mg/dl (70-99)
[2024-04-27 20:38] LABS: Blood Urea Nitrogen 21 mg/dl (7-17); Calcium 9.8 mg/dl (8.4-10.2); Carbon Dioxide 21 mmol/L (22-30); Chloride 99 mmol/L (98-107); Estimated Creatinine Clearance 37 ml/min; Glucose 163 mg/dl (70-99); Sodium 135 mmol/L (135-145); eGFR 42.27
[2024-04-27 21:19] LABS: Glucose - Point of Care 198 mg/dl (70-99)
[2024-04-27 21:26] VITALS: BP 173/98
[2024-04-27] MEDS: NORVASC 10 MG PO (21:26)
[2024-04-27] MEDS: HEPARIN 5000 UNITS SC (21:29)
--- NOTE | 2024-04-27 21:30 | PTCARENOTE ---
No response received from Dr. Figueroa. POOL LIFEGUARD Sudha notified of current glucose reading and insulin gtt orders.BMP drawn at 20:00 per orders. POOL LIFEGUARD instructed this RN to restart insulin gtt. Order received for D5 1/2 Ns. both medications initiated per
orders. see mar and insulin gtt titration documentation.
[2024-04-27 22:00] VITALS: BP 179/102
[2024-04-27 22:21] LABS: Glucose - Point of Care 223 mg/dl (70-99)
--- NOTE | 2024-04-27 23:01 | W.PN.UPDATE ---
Update Note
Progress Note Update
AG 19 BS 198 patient symptomatic with N/V diaphoretic Hr 127 173/98. Will continue Insulin drip with D51/5 NS, BMP repeat at [place]
RN reports Patient had an episode of emesis that was mixed with dark blood color. Patient had a tooth extraction 3/ and is on Heparin SQ
will check CBC
MN AG 22 BS 277 Will d/c D5 1/2 NS and star NSS IV infusion.
AM labs AG 19.7 BS 127 Will continue Insulin gtt per protocol, Change fluids to D5 1/2 NS BMP q4h
RN aware patient with no new complaints at present.
[2024-04-27 23:26] LABS: Glucose - Point of Care 237 mg/dl (70-99)
[2024-04-28] VITALS (8 sets, daily range): BP systolic 113–170; BP diastolic 69–118
[2024-04-28 00:34] LABS: Glucose - Point of Care 250 mg/dl (70-99)
[2024-04-28 00:53] LABS: Hematocrit 48.5 % (37.0-47.0); Mean Corp Hgb Conc. 35.1 g/dL (33.0-37.0); Mean Corpuscular Hgb 29.8 pg (27.0-31.0); Mean Corpuscular Volume 84.9 fL (81.0-99.0); Mean Platelet Volume 9.4 fL (7.4-10.4); Platelet Count 350 10^3/uL (130-400); Red Blood Cell Count 5.71 10^6/uL (4.20-5.40); Red Cell Dist. Width 13.4 % (11.5-14.5); White Blood Cell Count 21.4 10^3/uL (4.8-10.8)
[2024-04-28 01:12] LABS: Glucose - Point of Care 272 mg/dl (70-99)
[2024-04-28 01:25] LABS: Blood Urea Nitrogen 21 mg/dl (7-17); Carbon Dioxide 23 mmol/L (22-30); Chloride 96 mmol/L (98-107); Estimated Creatinine Clearance 40 ml/min; Glucose 277 mg/dl (70-99); Potassium 4.3 mmol/L (3.5-5.1); Sodium 137 mmol/L (135-145); eGFR 46.21
[2024-04-28 02:23] LABS: Glucose - Point of Care 211 mg/dl (70-99)
[2024-04-28] MEDS: NSS 1000 IV (02:33)
[2024-04-28 03:25] LABS: Glucose - Point of Care 187 mg/dl (70-99)
[2024-04-28 04:31] LABS: Glucose - Point of Care 118 mg/dl (70-99)
[2024-04-28 05:04] LABS: Hematocrit 47.9 % (37.0-47.0); Hemoglobin 16.6 g/dL (12.0-16.0); Mean Corp Hgb Conc. 34.7 g/dL (33.0-37.0); Mean Corpuscular Hgb 29.9 pg (27.0-31.0); Mean Corpuscular Volume 86.2 fL (81.0-99.0); Mean Platelet Volume 9.4 fL (7.4-10.4); Platelet Count 332 10^3/uL (130-400); Red Blood Cell Count 5.56 10^6/uL (4.20-5.40); Red Cell Dist. Width 13.6 % (11.5-14.5); White Blood Cell Count 19.3 10^3/uL (4.8-10.8)
[2024-04-28 05:23] LABS: Glucose - Point of Care 107 mg/dl (70-99)
[2024-04-28 05:30] LABS: Blood Urea Nitrogen 20 mg/dl (7-17); Calcium 9.8 mg/dl (8.4-10.2); Carbon Dioxide 22 mmol/L (22-30); Chloride 98 mmol/L (98-107); Estimated Creatinine Clearance 44 ml/min; Glucose 121 mg/dl (70-99); Potassium 3.7 mmol/L (3.5-5.1); Sodium 136 mmol/L (135-145); eGFR 50.86
[2024-04-28] MEDS: D5/0.45%NACL 1000 IV (06:28)
[2024-04-28 06:35] LABS: Glucose - Point of Care 128 mg/dl (70-99)
--- NOTE | 2024-04-28 06:48 | PTCARENOTE ---
Pt seen arriving to IMU from ED at 1900. Report received from IMU RN. Pt ordered q1 glucose checks. received in report to 'message Dr. Figueroa with results of next Q1 glucose check'. When entering room, Pt not connected to any Iv infusions. per APR,
there are active orders for insulin gtt at this time. pt glucose check 116 @ 19:16. Henry SPAIN notified of pts glucose reading per tiger text. order present to notify MD when glucose less than 250 to receive orders for D5 1/2 NS. No active orders
for fluids at this time.
[2024-04-28 07:18] LABS: Glucose - Point of Care 166 mg/dl (70-99)
[2024-04-28 08:21] LABS: Glucose - Point of Care 205 mg/dl (70-99)
[2024-04-28] MEDS: HEPARIN 5000 UNITS SC (08:26)
[2024-04-28] MEDS: LANTUS 0.1 UNITS SC (08:26)
[2024-04-28] MEDS: ASPIR LOW (ENTERIC COATED) 81 MG PO (08:26)
[2024-04-28 09:13] LABS: Free T4 1.68 ng/dl (0.78-2.19)
[2024-04-28 09:26] LABS: TSH 1.75 uIU/ml (0.47-4.68)
--- NOTE | 2024-04-28 09:36 | W.PN.HOSP.TC ---
Today's Communication/Plan
-
d/c home
Assessment / Plan
Assessment / Plan
1. DKA - Resolved
Insulin dependant diabetes mellitus
-Comes in with nausea vomiting and elevated glucose reported in 260s at home
-AGAP of 20. BHB level of 2.5 at admit
-Possible mild DKA at best, maintain on insulin drip for now
-Anion gap is closed and patient bicarb of 22
-Stop insulin drip and transition to home dose of Lantus and subcu insulin
-Patient follow-up with endocrinology in outpatient basis, recommended to follow
2. KATHERINE - resolving
-Elevated creatinine of 1.6, baseline of 1
-hold lisinopril
-Cr trended down to 1.2
3. Essential hypertension
-Continue Norvasc, hold lisinopril with HTN
4. Medical marijuana use
-uses for anxiety/stress
5. Sinus tachycardia
-Asymptomatic
-Check TSH/free T4
-Not on any beta-blockers at home
-Patient active smoker with 1 pack a day smoking, possible nicotine withdrawal related
6. Leukocytosis without fever
Status post tooth extraction yesterday
-No signs to suggest of infection, likely reactive changes
7. Tobacco abuse
-Counseled on cessation
DVTPPX - heparin subq
Full code
More than 30 minutes spent in discharge including
Final examination of the patient
Summarizing hospital stay
Instructions for continuing care to all relevant caregivers
Preparation of discharge records, prescriptions, and referral forms
Total time spent (in minutes): 39 mins
Anticipated Discharge: Today
Subjective/Interval History
-
Date of Service: April 28, 2024
Resting comfortably in bed
afebrile overnight
No nausea vomiting
Objective Data
-
Labs:
Laboratory Results
04/28/24 04/28/24 04/28/24
00:00 00:22 04:31
WBC 21.4 H 19.3 H
Hgb 17.0 H 16.6 H
Hct 48.5 H 47.9 H
Plt Count 350 332
Sodium Cancelled 137 136
Potassium Cancelled 4.3 3.7
Chloride Cancelled 96 L 98
Carbon Dioxide Cancelled 23 22
BUN Cancelled 21 H 20 H
Creatinine Cancelled 1.3 H 1.2 H
Glucose Cancelled 277 H 121 H
Calcium Cancelled 10.0 9.8
Vital Signs:
Vital Signs
Temp Pulse Resp BP Pulse Ox
98.3 F 134 29 146/118 94
04/28/24 07:28 04/28/24 06:45 04/28/24 06:45 04/28/24 06:00 04/28/24 06:30
I&O
04/27/24 04/28/24 04/29/24
06:59 06:59 06:59
Intake Total 1700 / 1700
Balance 1700 / 1700
Review of Systems
-
Respiratory: Reports No Symptoms
Cardiac: Reports No Symptoms
Abdomen/GI: Reports No Symptoms
Physical Exam
-
General: No Apparent Distress and Comfortable
HEENT: Negative Oxygen
Respiratory: Clear to Auscultation
Cardiac: Regular Rhythm, S1/S2 and Tachycardic; Negative Murmur or Rub
GI: Soft, Nontender and Nondistended
Musculoskeletal: No Edema
Neuro: Awake, Alert, Oriented, No Motor Deficits and Nonfocal/Grossly Intact
Psych: Calm
--- NOTE | 2024-04-28 09:50 | CM ---
Patient with Dx DKA. Room air.
Spoke with patient who resides with her SO Susan in a one story house with 5 [id number].
The patient was independent in ADLs and ambulation.
DME - [employer], RW, S[facility]
No prior VN or SNF.
PCP - Reggie Huff
Pharmacy - [facility] [address]
The patient says she feels ready for d/c home today.
Her SO will provide transport home.
No CM d/c needs identified.
Plan home today.
[2024-04-28] MEDS: NOVOLOG FLEXPEN-LOW RESISTANCE 2 UNITS SC (09:55)
--- NOTE | 2024-04-28 10:24 | PTCARENOTE ---
Patient is for discharge. Insulin drip discontinued. Patient tolerated breakfast. Blood sugar 220, covered with sliding scale. IV sites removed. Patient denying pain when asked. In good spirits. Belongings packed up by patient.
--- NOTE | 2024-04-29 17:43 | W.DCSUMMARY ---
Discharge Summary
Discharge Data
Date of Admission: 04/27/24
Date of Discharge: 04/28/24
-
Pending Results: No
Hospital Course
Discharging Physician : Dr Dayton Figueroa
Disposition : To home
Primary care physician : Dr Reggie Huff
Principal Discharge diagnosis :
Diabetic ketoacidosis
Acute kidney injury
Leukocytosis without fever
Chronic Discharge diagnosis :
Essential hypertension
Medical marijuana use
Tobacco use
Hospital Course :
Patient is 63-year-old female with mentioned past medical history came to ER for having high blood glucose on continuous glucose monitor. Patient was also having episodes of nausea and vomiting on the morning and was unable to keep breakfast down.
Patient apparently underwent a tooth extraction earlier in the morning as well at dentist office and noticed her blood glucose to be elevated. Patient have history of DKA in the past and was concern for send repeat episode. In ER patient was noted
to having blood glucose in 200 trended range with open anion gap of 20. Beta hydroxybutyrate level were elevated. Patient was started on insulin drip and was admitted to ICU for further monitoring. Patient metabolic acidosis resolved with gap
closed within 12 hours. Patient was switched back to home dose of insulin.
Associated with this patient had acute kidney injury which improved with IV hydration as well. Patient on lisinopril at home which was held.
Patient also had sinus tachycardia. TSH/free T4 were within normal limit. Patient smokes tobacco and likely related to tobacco/nicotine withdrawal
Patient was discharged home post medical stabilization at this point.
Important imaging findings :
None
Procedure findings :
None
Discharge Plan
-
Patient Disposition: Home (Routine Discharge)
Discharge Diagnosis/Procedures: DKA. Leukocytosis , s/p tooth extraction
Condition: Fair
Diet: Diabetic, Carb Controlled
Activity: As tolerated
Driving Restrictions: As prior to admission
Bathing Restrictions: OK to Shower
Activity Restrictions/Additional Instructions:
Please contact Primary conservation specialist.
Referrals:
Reggie Huff MD [Family Provider] - in one week
Prescriptions:
Continued
amlodipine [Norvasc] 10 mg Tablet
10 mg PO QPM
metformin 1,000 mg Tablet
1,000 mg PO DAILY
lisinopril 40 mg Tablet
40 mg PO DAILY
aspirin 81 mg Tablet,Delayed Release (Dr/Ec)
81 mg PO DAILY
ghthtdr-hpgdvzfibmkvm-uvszvpzj 250-250-65 mg Tablet
2 tab PO DAILYPRN PRN (Reason: headaches)
Medical Marijuana
2 puff inhalation DAILYPRN PRN (Reason: stress)
acetaminophen-codeine 300-30 mg Tablet
1 tab PO TIDPRN PRN (Reason: severe pain/tooth extraction)
Patient Comments:
1 dose taken
acetaminophen 500 mg Tablet
1,000 mg PO QIDPRN PRN (Reason: mild pain)
diphenhydramine-acetaminophen [Tylenol PM Extra Strength] 25-500 mg Tablet
1 tab PO HSPRN PRN (Reason: sleep)
insulin glargine [Basaglar KwikPen U-100 Insulin] 100 unit/mL (3 mL) insulin pen
8 unit SC QPM
Discharge Orders:
Discharge Patient (As Directed); Ordered 04/28/24
Ordered By: Dayton Figueroa
Discharge Date and Time
Discharge Date/Time: 04/28/24 10:55
Print Language: UPPER SORBIAN
== END 2024-04-28 10:55 | disposition home or self-care (01) | DRG 638 ==
LOC: IMU 16:29
PROVIDERS: Nurse Practitioner Gerontology; Physician Assistant; ADMITTING PHYSICIAN Hospitalist; EMERGENCY PHYSICIAN Emergency Medicine; FAMILY PHYSICIAN Family Medicine
DX: E11.10 Type 2 diabetes mellitus with ketoacidosis without coma (principal); N17.9 Acute kidney failure, unspecified; I10 Essential (primary) hypertension; F12.90 Cannabis use, unspecified, uncomplicated; F41.9 Anxiety disorder, unspecified; Z79.4 Long term (current) use of insulin
CPT/HCPCS: 80048; 80053; 82010; 82805; 82962; 84439; 84443; 85025; 85027; 93005; 96361; 96374; 96375; 99285